=== PATIENT | male | born 1985 | race Hispanic/Latino ===

== ENCOUNTER → 2020-08-12 | Day surgery (SDC) | payer OTHER ==
[2020-08-07 12:03] LABS: BASOPHILS # (AUTO) 0.1 (0.0-0.1); BASOPHILS % 1.3 % (0.0-1.0); EOSINOPHILS # (AUTO) 0.1 (0.0-0.4); EOSINOPHILS % 1.1 % (0.0-6.0); HEMATOCRIT 46.7 % (38.2-49.6); HEMOGLOBIN 15.4 g/dL (14.0-18.0); LYMPHOCYTES % 43.5 % (18.0-39.1); MEAN CORPUSCULAR HEMOGLOBIN 29.1 pg (28-32); MEAN CORPUSCULAR VOLUME 88.1 fL (81-99); MONOCYTES # (AUTO) 0.6 (0.2-0.8); MONOCYTES % 8.3 % (4.4-11.3); NEUTROPHILS # (AUTO) 3.2 (2.1-6.9); NEUTROPHILS % 45.5 % (38.7-80.0); PLATELET COUNT 243 x10e3/uL (140-360); RED CELL DISTRIBUTION WIDTH 12.8 % (11.7-14.4)
[2020-08-07 12:19] LABS: ANION GAP 13.5 mmol/L (8-16); BLOOD UREA NITROGEN 16 mg/dL (7-26); BUN/CREATININE RATIO 16 (6-25); CALCIUM 9.3 mg/dL (8.4-10.2); CARBON DIOXIDE 26 mmol/L (22-29); CHLORIDE 106 mmol/L (98-107); CREATININE, SERUM 0.99 mg/dL (0.72-1.25); EST GLOMERULAR FILTRATION RATE > 60 ML/MIN (60-); GLUCOSE 89 mg/dL (74-118); POTASSIUM 4.5 mmol/L (3.5-5.1); SODIUM 141 mmol/L (136-145)
[~2020-08-12] MED LIST: AMLODIPINE BESY10 MG PO; ATROPINE SULFATE 1 MG/ML VIAL ONE; BUPIVACAINE HCL 0.5% INJ 30 ML VIAL INJ ONE; DEXAMETHASONE SOD PHOS INJ 4 MG/ML VIAL ONE; FENTANYL CITRATE/PF 100MCG/2 ML INJ ONE; KETOROLAC TROMETHAMINE 30 MG/ML VIAL ONE; LIDOCAINE 2%/ EPINEPHRINE 20ML MDV ONE; LIDOCAINE HCL 2% LOCAL INJ 5 ML SDV VIAL INJ ONE; LOSARTAN-HCTZ1 EAC1 PO; MIDAZOLAM HCL 2 MG/2 ML VIAL ONE; NEOSTIGMINE 1 MG/ML 10ML VIAL ONE; ONDANSETRON HCL INJ 2MG/ML 2ML 2 MG/ML VIAL ONE; PROPOFOL IV EMULSION 10 MG/ML 20 ML VIAL ONE; ROCURONIUM BROMIDE 10 MG/ML 5ML VIAL IV ONE; SEVOFLURANE INHAL SOLN 250 ML PEN BTL ONE
[2020-08-12 11:13] VITALS: BP 116/67
--- NOTE | 2020-08-12 11:52 | Operative Report ---
DATE OF PROCEDURE: 08/12/2020 SURGEON: Deon Ackerman MD PREOPERATIVE DIAGNOSIS: Large mass of the posterior neck. POSTOPERATIVE DIAGNOSIS: Large mass of the posterior neck. OPERATION PERFORMED: Excision of large intramuscular mass of the posterior neck. ANESTHESIA: General. COMPLICATIONS: None. ESTIMATED BLOOD LOSS: Minimal. DESCRIPTION OF PROCEDURE: With the patient lying in bed in the lateral position under good general endotracheal anesthesia, the back of the neck and chest were prepped with Betadine solution and draped in the usual manner. The area overlying the large mass in the right and mid aspect of the lower posterior neck was then infiltrated with 0.25% Marcaine and 1% lidocaine with epinephrine and a transverse incision was made, was carried down through the subcutaneous tissue and through the superficial fascia and immediately a multilobulated lipomatous appearing mass was encountered, which was very stuck to all the surrounding tissues on the right side. it was partially intramuscular. The mass was then slowly and carefully from all the surrounding structures and resected off the muscles and totally and completely removed and sent for pathological examination. Hemostasis was then ascertained. The whole area was thoroughly irrigated and the wound was then closed in layers. The fascia was reapproximated with interrupted sutures of 2-0 Vicryl. The subcutaneous tissue was approximated with 2-0 Vicryl and the skin was closed with interrupted vertical mattress sutures of 3-0 silk. Dressing was applied. The sponge, lap, and needle count was correct. The patient tolerated the procedure well and returned to the recovery room in stable condition. MD BIANCA Lacy/MODL /[id number]
== END | disposition home or self-care (01) ==
LOC: OR 06:31
PROVIDERS: ATTEND Surgery
DX: D17.9 Benign lipomatous neoplasm, unspecified (principal); I10 Essential (primary) hypertension; Z01.810 Encounter for preprocedural cardiovascular examination; Z01.812 Encounter for preprocedural laboratory examination; Z11.59 Encounter for screening for other viral diseases
CPT/HCPCS: 21554; 36415; 80048; 85025; 88304; 88342; 93005; J0461; J1100; J1885; J2001 ×2; J2250; J2405; J2704; J2710; J3010; U0002